=== PATIENT | female | born 1960 | race Caucasian/White ===

== ENCOUNTER 2021-11-28 09:59 | Outpatient (CLI) | payer OTHER, SELFPAY ==
--- NOTE | ~2021-11-28 | US_ITS ---
EXAMINATION: US right upper quadrant DATE: 11/28/2021 10:17 INDICATION: Abdominal pain. Nausea and vomiting. TECHNIQUE: Multiple grayscale and Doppler ultrasound images of the abdomen were obtained. COMPARISON: None FINDINGS: Abdominal aorta is normal in caliber. The visualized portions of the head and body of the p ancreas are normal. There is diffuse hepatic steatosis. No liver surface nodularity. There is a 1.7 c m cyst in the liver. There is normal flow in main portal vein. The gallbladder is normal in size. No gallstones or gallbladder wall thickening. There was no sonographic Banks sign. The common duct is n ormal and measures 5 mm. IMPRESSION: 1. Diffuse hepatic steatosis. Reviewed, dictated and finalized at location B.
== END 2021-11-28 10:00 ==
PROVIDERS: PCP Internal Medicine; Visit Provider Internal Medicine
DX: R10.9 Unspecified abdominal pain (principal); K76.0 Fatty (change of) liver, not elsewhere classified
CPT/HCPCS: 76705

== ENCOUNTER 2022-04-21 00:32 | Day surgery (SDC) | payer OTHER, SELFPAY ==
[2022-04-11 10:16] VITALS: BMI 29.0
--- NOTE | 2022-04-20 15:43 | PM.HPGS ---
History of Present Illness History of Present Illness Consent: Risks, benefits, and alternatives have been discussed and questions answered. Patient agrees to proceed with procedure. Chief complaint: hx colon polyps, abdom. distension, weightloss Narrative: Cece Levi is a 61 year old female Who was being investigated for abdominal pain nausea and heartburn. She states that in December she began having epigastric pain which will radiate to the center of her abdomen. She also has nausea bloating. Most of this occurs an hour to after eating particularly if it is spicy food. Symptoms last from minutes to hours. Pepcid will help to some extent with nausea. She has lost about 15 lb during this period of time. she does take meloxicam 15 mg but not daily, and also is chronically on Nexium. Review of Systems Review of Systems: All systems reviewed & are unremarkable except as noted in HPI and below PMFSH Past Medical History Medical History Abdominal pain Abnormality of heart beat Alternating constipation and diarrhea Arthritis Bleeding nose Bloating Cardiomegaly Cavus deformity of left foot Congestion of nasal sinus Constipation COPD (chronic obstructive pulmonary disease) Coughing Dizziness Excessive bleeding GERD (gastroesophageal reflux disease) Hearing loss History of adverse reaction to anesthesia History of intraoperative complication of surgical procedure IBS (irritable bowel syndrome) Light headedness Metatarsus adductus of both feet SOB (shortness of breath) Wears glasses Weight loss Wheezing Surgical History Surgical History History of ear surgery History of nasal surgery History of throat surgery History of tonsillectomy and adenoidectomy Family History Family History Other Arthritis Asthma Cerebrovascular accident Diabetes mellitus Heart disease Hypertension Kidney disorder Lung disease Social History Social History Smoking status: Never smoker Alcohol intake: current Alcohol use details: 2 per month Substance use: never Substance use type: does not use Living arrangements: with family Gender identity (if verbalized by the patient): Female Spiritual care concerns: No Meds Home Medications and Allergies Home Medications Medication Instructions Recorded Confirmed Type acetaminophen 325 mg capsule 325 mg PO Q6H PRN Pain 02/04/21 04/11/22 History (Tylenol) cetirizine 10 mg capsule (Zyrtec) 10 mg PO DAILY PRN Allergy Symptoms 02/04/21 04/11/22 History cholecalciferol (vitamin D3) 50 50 mcg PO DAILY 02/04/21 04/11/22 History mcg (2,000 unit) capsule garlic 1,000 mg capsule 2,000 mg PO DAILY 02/04/21 04/11/22 History guaifenesin [Mucinex] 1 tab-cap PO DAILY 02/04/21 04/11/22 History meloxicam 15 mg tablet 15 mg PO DAILY 02/04/21 04/11/22 History vitamin B complex [B 1 tab-cap PO DAILY 02/04/21 04/11/22 History Complex-Vitamin B12] zinc acetate 1 tab-cap PO DAILY 02/04/21 04/11/22 History esomeprazole magnesium 40 mg 40 mg PO DAILY 1 month #30 caps 03/22/22 04/11/22 Rx capsule,delayed release (Nexium) magnesium oxide 500 mg tablet 500 mg PO DAILY 03/22/22 04/11/22 History turmeric root extract 500 mg 500 mg PO DAILY 03/22/22 04/11/22 History capsule montelukast 10 mg tablet 10 mg PO DAILY 04/11/22 04/11/22 History Allergies Allergy/AdvReac Type Severity Reaction Status Date / Time codeine Allergy Unknown nausea and Verified 04/21/22 12:20 vomiting Sulfa (Sulfonamide Allergy Unknown rash Verified 04/21/22 12:20 Antibiotics) Exam Const: General: alert Orientation/consciousness: patient oriented x3 Resp: Auscultation: clear to auscultation bilaterally Cardio: Rhythm: regular rhythm GI: GI Palp: Yes Soft to pal
[2022-04-21 12:22] VITALS: BP 110/65; PULSE 60; RESP 18; TEMP 36.2; O2SAT 100
[2022-04-21] MEDS: LACTATED RINGERS 1,000 ML 150 ML IV CONT (12:34)
--- NOTE | 2022-04-21 12:52 | WPDANESEPPF ---
Anes - Initial Pre Proc Eval Procedure: Operation Date: 04/21/22 13:30 Proposed Procedures p Esophagogastroduodenoscopy & Colonoscopy - Choco Harper MD Date/Time: 04/21/22 12:52 Surgeon: Choco Harper MD Pre Op Diagnosis: hx colon polyps, abdom. distension, weightloss Patient Data Age: 61 Gender: F Height: 1.65 m Weight: 74.7 kg Last Vital Signs Temp 97.2 F L 04/21/22 12:22 Pulse 60 04/21/22 12:22 Resp 18 04/21/22 12:22 BP 110/65 04/21/22 12:22 Pulse Ox 100 04/21/22 12:22 O2 Del Method Room Air 04/21/22 12:22 Allergies Allergy/AdvReac Type Severity Reaction Status Date / Time codeine Allergy Unknown nausea and Verified 04/21/22 12:20 vomiting Sulfa (Sulfonamide Allergy Unknown rash Verified 04/21/22 12:20 Antibiotics) Home Medications Medication Instructions Recorded Confirmed Type acetaminophen 325 mg capsule 325 mg PO Q6H PRN Pain 02/04/21 04/11/22 History (Tylenol) cetirizine 10 mg capsule (Zyrtec) 10 mg PO DAILY PRN Allergy Symptoms 02/04/21 04/11/22 History cholecalciferol (vitamin D3) 50 50 mcg PO DAILY 02/04/21 04/11/22 History mcg (2,000 unit) capsule garlic 1,000 mg capsule 2,000 mg PO DAILY 02/04/21 04/11/22 History guaifenesin [Mucinex] 1 tab-cap PO DAILY 02/04/21 04/11/22 History meloxicam 15 mg tablet 15 mg PO DAILY 02/04/21 04/11/22 History vitamin B complex [B 1 tab-cap PO DAILY 02/04/21 04/11/22 History Complex-Vitamin B12] zinc acetate 1 tab-cap PO DAILY 02/04/21 04/11/22 History esomeprazole magnesium 40 mg 40 mg PO DAILY 1 month #30 caps 03/22/22 04/11/22 Rx capsule,delayed release (Nexium) magnesium oxide 500 mg tablet 500 mg PO DAILY 03/22/22 04/11/22 History turmeric root extract 500 mg 500 mg PO DAILY 03/22/22 04/11/22 History capsule montelukast 10 mg tablet 10 mg PO DAILY 04/11/22 04/11/22 History Patient hx anesthesia problems: none Family hx anesthesia problems: none Results Review: All pre-operative results and documents have been reviewed as part of the pre-operative evaluation. [facility] Past Medical History Medical History (Updated 04/21/22 @ 12:27 by Choco Harper MD) Abdominal pain Abnormality of heart beat Alternating constipation and diarrhea Arthritis Bleeding nose Bloating Cardiomegaly Cavus deformity of left foot Congestion of nasal sinus Constipation COPD (chronic obstructive pulmonary disease) Coughing Dizziness Excessive bleeding GERD (gastroesophageal reflux disease) Hearing loss History of adverse reaction to anesthesia History of intraoperative complication of surgical procedure IBS (irritable bowel syndrome) Light headedness Metatarsus adductus of both feet SOB (shortness of breath) Wears glasses Weight loss Wheezing Surgical History Surgical History History of ear surgery History of nasal surgery History of throat surgery History of tonsillectomy and adenoidectomy Family History Family History Other Arthritis Asthma Cerebrovascular accident Diabetes mellitus Heart disease Hypertension Kidney disorder Lung disease Social History Social History Smoking status: Never smoker Alcohol intake: current Alcohol use details: 2 per month Substance use: never Substance use type: does not use Living arrangements: with family Gender identity (if verbalized by the patient): Female Spiritual care concerns: No Anes - Eval Final PreProcedure Day of Procedure 04/21/22 12:52 Patient weight: normal Heart: regular rate and rhythm Lungs: clear to auscultation Airway: Mallampati scale class II Neurological: alert and oriented Last oral intake: >/= 8 hours ASA classification: III Emergent: no Anesthetic plan: proceed Anesthesia type and monitoring: general GIVS and standard monitoring Results Revi
--- NOTE | 2022-04-21 13:40 | SUR.OPER ---
EGD START: 1314; END: 1319. COLONOSCOPY START: 1326; END: 1339.
[2022-04-21 13:42] VITALS: BP 95/58; PULSE 54; RESP 14; O2SAT 100
[2022-04-21 13:52] VITALS: BP 94/56; PULSE 58; RESP 17; O2SAT 99
[2022-04-21 14:02] VITALS: BP 104/60; PULSE 48; RESP 18; O2SAT 100
== END 2022-04-21 14:28 | disposition home or self-care (01) ==
PROVIDERS: PCP Physician Assistant Medical; Visit Provider Internal Medicine Gastroenterology
PROC: 0DJ08ZZ Inspection of Upper Intestinal Tract, Via Natural or Artificial Opening Endoscopic (ICD-10-PCS; CPT 43235; principal; 2022-04-21 13:30)
DX: Z12.11 Encounter for screening for malignant neoplasm of colon (principal); Z86.010 Personal history of colon polyps; K57.30 Diverticulosis of large intestine without perforation or abscess without bleeding; R10.13 Epigastric pain; K21.00 Gastro-esophageal reflux disease with esophagitis, without bleeding; K22.5 Diverticulum of esophagus, acquired; R14.0 Abdominal distension (gaseous); R63.4 Abnormal weight loss; J44.9 Chronic obstructive pulmonary disease, unspecified; K58.9 Irritable bowel syndrome, unspecified; M19.90 Unspecified osteoarthritis, unspecified site; I51.7 Cardiomegaly
CPT/HCPCS: 45378; 43239; 88305; J2704; J7120

== ENCOUNTER 2022-05-18 07:38 | Outpatient (CLI) | payer OTHER, SELFPAY ==
--- NOTE | ~2022-05-18 | NM_ITS ---
EXAM: NM gastric emptying study DATE: 05/18/2022 12:59 CDT INDICATION: Postprandial nausea with bloating TECHNIQUE: A gastric emptying study was performed using the methodology of Ariela TAN, et al. J Nucl Med 2007; 48:568-572. The patient was given a meal consisting of 2 scrambled eggs labeled with 1 mCi Tc-99m sulfur colloid, 2 slices of toast, two packages of jam, and approximately 120 mL of water. Si multaneous anterior and posterior 1-min images of the abdomen were obtained with the patient supine a t multiple time points over a total period of 4 hours. The geometric mean of anterior and posterior v iews was determined, and the percentage retention was calculated for each time point. COMPARISON: Ultrasound dated 11/28/2021. FINDINGS: Gastric retention of the radiotracer-labeled meal was 57%, 34%, and 8% at the 1-hour, 2-ho ur, and 4-hour time points, respectively. With this technique, apparent rapid gastric emptying is sug gested by <30% gastric retention at 1 hour. Delayed gastric emptying is defined by gastric retention of >90% at 1 hour, >60% retention at 2 hours, or >10% retention at 4 hours. IMPRESSION: 1. Normal gastric emptying. Reviewed, dictated and finalized at location A. IMPRESSION: 1. Normal gastric emptying.
== END 2022-05-18 07:39 | disposition home or self-care (01) ==
LOC: ANHIMG 07:42
PROVIDERS: PCP Physician Assistant Medical; Visit Provider Nurse Practitioner Family
DX: R11.0 Nausea (principal); R14.0 Abdominal distension (gaseous)
CPT/HCPCS: 78264; A9541

== ENCOUNTER 2022-11-12 17:19 | Emergency (ER) | payer OTHER, SELFPAY ==
--- NOTE | 2022-11-12 17:27 | ED.GENADULT ---
HPI - General Adult General Chief complaint: Upper Respiratory Infection Stated complaint: sorethroat,cough,rt ear pain Time Seen by Provider: 11/12/22 17:27 Source: patient Mode of arrival: ambulatory Limitations: no limitations History of Present Illness HPI narrative: 7-year-old female patient presents to the [facility] with complaints of cold symptoms for the past 2 days. Patient states she has had cough, congestion, runny nose, watery eyes and a scratchy sore throat. Denies fevers, body aches or chills. Denies chest pain or shortness of breath. Patient states she has been taking [id number]-gaw-likmsov sinus medication for her symptoms including Mucinex. Related Data Home Medications Medication Instructions Recorded Confirmed acetaminophen 325 mg capsule 325 mg PO Q6H PRN Pain 02/04/21 11/12/22 (Tylenol) cetirizine 10 mg capsule (Zyrtec) 10 mg PO DAILY PRN Allergy Symptoms 02/04/21 11/12/22 cholecalciferol (vitamin D3) 50 50 mcg PO DAILY 02/04/21 11/12/22 mcg (2,000 unit) capsule guaifenesin [Mucinex] 1 tab-cap PO DAILY 02/04/21 11/12/22 vitamin B complex [B 1 tab-cap PO DAILY 02/04/21 11/12/22 Complex-Vitamin B12] zinc acetate 1 tab-cap PO DAILY 02/04/21 11/12/22 turmeric root extract 500 mg 500 mg PO DAILY 03/22/22 11/12/22 capsule Lactobacills gasseri-Bifidobac 1 cap PO DAILY 10/20/22 11/12/22 bifidum,longum 1.5 billion cell capsule (BuildFax) magnesium citrate 4 gram oral 400 mg PO DAILY 10/20/22 11/12/22 packet omega 8-plq-qmc-fish oil 300 1 cap PO DAILY 10/20/22 11/12/22 mg-1,000 mg capsule (Fish Oil) Allergies Allergy/AdvReac Type Severity Reaction Status Date / Time codeine Allergy Unknown nausea and Verified 11/12/22 17:37 vomiting Sulfa (Sulfonamide Allergy Unknown rash Verified 11/12/22 17:37 Antibiotics) Review of Systems Review of Systems: CONSTITUTIONAL: Denies fever, chills, or sweats. EYES: Denies visual changes, redness, or discharge. ENT: Positiverhinorrhea, congestion, sore throat, and bilateral otalgia. CARDIOVASCULAR: Denies chest pain, palpitations, or edema. RESPIRATORY: positive nonproductive cough , denies dyspnea. GASTROINTESTINAL: Denies abdominal pain, nausea, vomiting, or diarrhea. GENITOURINARY: Denies dysuria or hematuria. SKIN: Denies rash or itching. MUSCULOSKELETAL: Denies back pain, joint pain, or myalgia. NEUROLOGIC: Denies headache, numbness, or weakness. PSYCHIATRIC: Denies anxiety or depression. [facility] Past Medical History Medical History Abdominal pain Abnormality of heart beat Allergies Alternating constipation and diarrhea Anxiety Arthritis Bleeding nose Bloating Cardiomegaly Cavus deformity of left foot Congestion of nasal sinus Constipation COPD (chronic obstructive pulmonary disease) Coughing Crohn's disease Dizziness Excessive bleeding GERD (gastroesophageal reflux disease) Hearing loss History of adverse reaction to anesthesia History of intraoperative complication of surgical procedure IBD (inflammatory bowel disease) IBS (irritable bowel syndrome) Light headedness Metatarsus adductus of both feet Migraines Osteoarthritis SOB (shortness of breath) Wears glasses Weight loss Wheezing Surgical History Surgical History History of ear surgery left; 1981, 1983, 1985, 1986 (mastoidectomy) History of nasal surgery (1974) broken nose History of nasal surgery (1977) History of throat surgery History of tonsillectomy and adenoidectomy (1965) Family History Family History Father Asthma Carcinoma of colon Lung cancer Diabetes mellitus Bipolar disorder Mother Diabetes mellitus Depression Hypertension Heart disease Cerebrovascular accident Rheumatoid arthritis Sibling Asthma Diabetes mellitus Hypertension Depression H
[2022-11-12 17:40] VITALS: BP 117/63; PULSE 71; RESP 12; TEMP 36.8; O2SAT 100
== END 2022-11-12 18:01 | disposition home or self-care (01) ==
PROVIDERS: Emergency Provider Nurse Practitioner Family; PCP Physician Assistant Medical
DX: J01.90 Acute sinusitis, unspecified (principal); Z20.822 Contact with and (suspected) exposure to COVID-19; J44.9 Chronic obstructive pulmonary disease, unspecified; K21.9 Gastro-esophageal reflux disease without esophagitis; M19.90 Unspecified osteoarthritis, unspecified site
CPT/HCPCS: 87081; 87426; 87804; 87880; 99213; C9803; G0463

== ENCOUNTER 2023-03-14 19:03 | Emergency (ER) | payer OTHER, SELFPAY ==
[2023-03-14 19:05] VITALS: BP 106/57; PULSE 73; RESP 16; TEMP 36.6; O2SAT 97
[2023-03-14 19:07] VITALS: BP 106/57; PULSE 73; RESP 16; TEMP 36.6; O2SAT 97
--- NOTE | 2023-03-14 19:08 | ED.SKABFB ---
HPI - Skin/Abscess/Foreign Bdy General Chief complaint: Skin/Abscess/Foreign Body Stated complaint: Unknown Time Seen by Provider: 03/14/23 19:08 Source: patient and RN notes reviewed History of Present Illness HPI narrative: 62-year-old female presents to urgent care with complaints of a presumed insect bite to her right posterior thigh. Patient states she went to the [facility] on Sunday night where she felt something possibly bite her right leg. Pt reports tenderness to the area. Denies any fevers, chills, vomiting, diarrhea, chest pain, SOB, or drainage from the area. Pt states she has attempted Epsom salt baths with minimal relief. Related Data Home Medications Medication Instructions Recorded Confirmed cetirizine 10 mg capsule (Zyrtec) 10 mg PO DAILY PRN Allergy Symptoms 02/04/21 03/14/23 cholecalciferol (vitamin D3) 50 50 mcg PO DAILY 02/04/21 03/14/23 mcg (2,000 unit) capsule guaifenesin [Mucinex] 1 tab-cap PO DAILY 02/04/21 03/14/23 vitamin B complex [B 1 tab-cap PO DAILY 02/04/21 03/14/23 Complex-Vitamin B12] zinc acetate 1 tab-cap PO DAILY 02/04/21 03/14/23 turmeric root extract 500 mg 500 mg PO DAILY 03/22/22 03/14/23 capsule Lactobacills gasseri-Bifidobac 1 cap PO DAILY 10/20/22 03/14/23 bifidum,longum 1.5 billion cell capsule (Glimpse) omega 9-qov-vxk-fish oil 300 1 cap PO DAILY 10/20/22 03/14/23 mg-1,000 mg capsule (Fish Oil) Allergies Allergy/AdvReac Type Severity Reaction Status Date / Time codeine AdvReac Intermediate nausea and Verified 03/14/23 19:05 vomiting Sulfa (Sulfonamide AdvReac Mild rash Verified 03/14/23 19:05 Antibiotics) Review of Systems Review of Systems: CONSTITUTIONAL: Denies fever, chills, or sweats. EYES: Denies visual changes, redness, or discharge. ENT: Denies otalgia and sore throat CARDIOVASCULAR: Denies chest pain, palpitations, or edema. RESPIRATORY: Denies cough or dyspnea. GASTROINTESTINAL: Denies abdominal pain, nausea, vomiting, or diarrhea. GENITOURINARY: Denies dysuria or hematuria. SKIN: insect bite to right posterior thigh MUSCULOSKELETAL: Denies back pain, joint pain, or myalgia. NEUROLOGIC: Denies headache, numbness, or weakness. Pertinent positives per HPI. [facility] Past Medical History Medical History Abdominal pain Abnormality of heart beat Allergies Alternating constipation and diarrhea Anxiety Arthritis Bleeding nose Bloating Cardiomegaly Cavus deformity of left foot Congestion of nasal sinus Constipation COPD (chronic obstructive pulmonary disease) Coughing Crohn's disease Dizziness Excessive bleeding GERD (gastroesophageal reflux disease) Hearing loss History of adverse reaction to anesthesia History of intraoperative complication of surgical procedure IBD (inflammatory bowel disease) IBS (irritable bowel syndrome) Light headedness Metatarsus adductus of both feet Migraines Osteoarthritis SOB (shortness of breath) Wears glasses Weight loss Wheezing Surgical History Surgical History History of ear surgery left; 1981, 1983, 1985, 1986 (mastoidectomy) History of nasal surgery (1974) broken nose History of nasal surgery (1977) History of throat surgery History of tonsillectomy and adenoidectomy (1965) Family History Family History Father Asthma Carcinoma of colon Lung cancer Diabetes mellitus Bipolar disorder Mother Diabetes mellitus Depression Hypertension Heart disease Cerebrovascular accident Rheumatoid arthritis Sibling Asthma Diabetes mellitus Hypertension Depression Heart disease Other Asthma Grandparent Heart disease Hypertension Cerebrovascular accident Thyroid disorder Grandparent Stomach cancer Depression Diabetes mellitus Cerebrovascular accident Other Arthrit
== END 2023-03-14 19:11 | disposition home or self-care (01) ==
LOC: EXPTROY 19:11
PROVIDERS: Emergency Provider Nurse Practitioner Family; PCP Physician Assistant Medical
DX: L03.115 Cellulitis of right lower limb (principal); M19.90 Unspecified osteoarthritis, unspecified site; I51.7 Cardiomegaly; J44.9 Chronic obstructive pulmonary disease, unspecified; K50.90 Crohn's disease, unspecified, without complications; K21.9 Gastro-esophageal reflux disease without esophagitis
CPT/HCPCS: 99213; G0463

== ENCOUNTER 2023-12-13 18:19 | Emergency (ER) | payer OTHER, SELFPAY ==
--- NOTE | ~2023-12-13 | XR_ITS ---
EXAMINATION: XR hip RT 2V w AP pelvis DATE: 12/13/2023 18:54 INDICATION: Right hip pain. Fall. TECHNIQUE: An anteroposterior view of the pelvis on two radiographs and 2 views of right hip were obt ained. COMPARISON: None. FINDINGS: There is lumbar levocurvature and mild spondylosis. No fracture. There is moderate right hi p osteoarthritis and mild left hip osteoarthritis. Osteitis pubis is noted. IMPRESSION: 1. Moderate right hip osteoarthritis and mild left hip osteoarthritis. Reviewed, dictated and finalized at location E.
[2023-12-13 18:32] VITALS: BP 105/64; PULSE 55; RESP 18; TEMP 36.4; O2SAT 98
--- NOTE | 2023-12-13 18:46 | ED.FALL ---
HPI - Fall General Chief Complaint: Back Pain/Injury Stated Complaint: Fall Sunday morning Time Seen by Provider: 12/13/23 18:39 Source: patient and RN notes reviewed Mode of arrival: ambulatory Limitations: no limitations History of Present Illness HPI Narrative: Patient presents today complaining of right low back and right hip pain after a fall in her home on to some tile floor in her kitchen 2 days ago. Denies numbness tingling in legs, feet, genitalia. Denies loss of bowel or bladder control. Currently rates her pain at rest 8/10, which increases with weight-bearing. She has been taking Tylenol with mild relief. Denies head injury or loss of consciousness. She does not take a blood thinner or aspirin. Related Data Allergies Allergy/AdvReac Type Severity Reaction Status Date / Time codeine AdvReac Intermediate nausea and Verified 12/13/23 18:52 vomiting Sulfa (Sulfonamide AdvReac Mild rash Verified 12/13/23 18:52 Antibiotics) Review of Systems Review of Systems: CONSTITUTIONAL: Denies body aches, fever, chills, or sweats. EYES: Denies visual changes, redness, or discharge. ENT: Denies rhinorrhea, congestion, sore throat, or otalgia. CARDIOVASCULAR: Denies chest pain, palpitations, or edema. RESPIRATORY: Denies cough or dyspnea. GASTROINTESTINAL: Denies abdominal pain, nausea, vomiting, or diarrhea. GENITOURINARY: Denies dysuria or hematuria. SKIN: Denies rash, itching, or wounds. MUSCULOSKELETAL: + right low back pain, right hip pain NEUROLOGIC: Denies headache, numbness, tingling, or weakness. PSYCH: Denies depression or anxiety. [facility] Past Medical History Medical History Abdominal pain Abnormality of heart beat Allergies Alternating constipation and diarrhea Anxiety Arthritis Bleeding nose Bloating Cardiomegaly Cavus deformity of left foot Colitis Congestion of nasal sinus Constipation COPD (chronic obstructive pulmonary disease) Coughing Dizziness Excessive bleeding GERD (gastroesophageal reflux disease) Hearing loss History of adverse reaction to anesthesia History of intraoperative complication of surgical procedure IBD (inflammatory bowel disease) IBS (irritable bowel syndrome) Light headedness Metatarsus adductus of both feet Migraines Osteoarthritis SOB (shortness of breath) Wears glasses Weight loss Wheezing Surgical History Surgical History History of ear surgery left; 1981, 1983, 1985, 1986 (mastoidectomy) History of nasal surgery (1974) broken nose History of nasal surgery (1977) History of throat surgery History of tonsillectomy and adenoidectomy (1965) Family History Family History Father Asthma Carcinoma of colon Lung cancer Diabetes mellitus Bipolar disorder Mother Diabetes mellitus Depression Hypertension Heart disease Cerebrovascular accident Rheumatoid arthritis Sibling Asthma Diabetes mellitus Hypertension Depression Heart disease Other Asthma Grandparent Heart disease Hypertension Cerebrovascular accident Thyroid disorder Grandparent Stomach cancer Depression Diabetes mellitus Cerebrovascular accident Other Arthritis Kidney disorder Lung disease Social History Social History Smoking status: Never smoker Alcohol intake: current Alcohol use details: 3 per year; wine Substance use: never Substance use type: does not use Living arrangements: with family Occupation/Education: occupation 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
== END 2023-12-13 19:10 | disposition home or self-care (01) ==
PROVIDERS: Emergency Provider Nurse Practitioner; PCP Physician Assistant Medical
DX: S39.012A Strain of muscle, fascia and tendon of lower back, initial encounter (principal); S70.01XA Contusion of right hip, initial encounter; W19.XXXA Unspecified fall, initial encounter; J44.9 Chronic obstructive pulmonary disease, unspecified; K21.9 Gastro-esophageal reflux disease without esophagitis; M19.90 Unspecified osteoarthritis, unspecified site
CPT/HCPCS: 73502; 99213; G0463

== ENCOUNTER 2024-02-06 17:56 | Emergency (ER) | payer OTHER, SELFPAY ==
--- NOTE | 2024-02-06 18:02 | ED.SKABFB ---
HPI - Skin/Abscess/Foreign Bdy General Chief complaint: Skin/Abscess/Foreign Body Stated complaint: Bite Right Ankle Time Seen by Provider: 02/06/24 18:02 Source: patient Mode of arrival: ambulatory Limitations: no limitations History of Present Illness HPI narrative: 63-year-old female presents with complaint of to insect bites to right ankle bladder not healing. Patient states that she went to [facility] January 22 and was bit by several mosquitos. Applying [id number] triple antibiotic ointment with no relief. erythematous and tender. Afebrile. All systems reviewed and negative except as noted above. Related Data Allergies Allergy/AdvReac Type Severity Reaction Status Date / Time codeine AdvReac Intermediate nausea and Verified 02/06/24 18:06 vomiting Sulfa (Sulfonamide AdvReac Mild rash Verified 02/06/24 18:06 Antibiotics) Review of Systems Review of Systems: CONSTITUTIONAL: Denies fever, chills, or sweats. EYES: Denies visual changes, redness, or discharge. ENT: Denies rhinorrhea, congestion, sore throat, or otalgia. CARDIOVASCULAR: Denies chest pain, palpitations, or edema. RESPIRATORY: Denies cough or dyspnea. GASTROINTESTINAL: Denies abdominal pain, nausea, vomiting, or diarrhea. GENITOURINARY: Denies dysuria or hematuria. SKIN: Denies rash or itching. Reports infected insect bites to right ankle. MUSCULOSKELETAL: Denies back pain, joint pain, or myalgia. NEUROLOGIC: Denies headache, numbness, or weakness. PSYCHIATRIC: Denies anxiety or depression. All other systems reviewed are negative, except as documented in HPI. [facility] Past Medical History Medical History Abdominal pain Abnormality of heart beat Allergies Alternating constipation and diarrhea Anxiety Arthritis Bleeding nose Bloating Cardiomegaly Cavus deformity of left foot Colitis Congestion of nasal sinus Constipation COPD (chronic obstructive pulmonary disease) Coughing Dizziness Excessive bleeding GERD (gastroesophageal reflux disease) Hearing loss History of adverse reaction to anesthesia History of intraoperative complication of surgical procedure IBD (inflammatory bowel disease) IBS (irritable bowel syndrome) Light headedness Metatarsus adductus of both feet Migraines Osteoarthritis SOB (shortness of breath) Wears glasses Weight loss Wheezing Surgical History Surgical History History of ear surgery left; 1981, 1983, 1985, 1986 (mastoidectomy) History of nasal surgery (1974) broken nose History of nasal surgery (1977) History of throat surgery History of tonsillectomy and adenoidectomy (1965) Family History Family History Father Asthma Carcinoma of colon Lung cancer Diabetes mellitus Bipolar disorder Mother Diabetes mellitus Depression Hypertension Heart disease Cerebrovascular accident Rheumatoid arthritis Sibling Asthma Diabetes mellitus Hypertension Depression Heart disease Other Asthma Grandparent Heart disease Hypertension Cerebrovascular accident Thyroid disorder Grandparent Stomach cancer Depression Diabetes mellitus Cerebrovascular accident Other Arthritis Kidney disorder Lung disease Social History Social History Smoking status: Never smoker Alcohol intake: current Alcohol use details: 3 per year; wine Substance use: never Substance use type: does not use Living arrangements: with family Occupation/Education: occupation 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
[2024-02-06 18:06] VITALS: BP 106/67; PULSE 67; RESP 18; TEMP 36.8; O2SAT 97
== END 2024-02-06 18:19 | disposition home or self-care (01) ==
PROVIDERS: Emergency Provider Nurse Practitioner Family; PCP Physician Assistant Medical
DX: S90.561A Insect bite (nonvenomous), right ankle, initial encounter (principal); L08.9 Local infection of the skin and subcutaneous tissue, unspecified; W57.XXXA Bitten or stung by nonvenomous insect and other nonvenomous arthropods, initial encounter; M19.90 Unspecified osteoarthritis, unspecified site; I51.7 Cardiomegaly; J44.9 Chronic obstructive pulmonary disease, unspecified; K21.9 Gastro-esophageal reflux disease without esophagitis
CPT/HCPCS: 99213; G0463

== ENCOUNTER 2024-03-09 19:37 | Emergency (ER) | payer OTHER, SELFPAY ==
[2024-03-09 19:54] VITALS: BP 106/51; PULSE 57; RESP 18; TEMP 36.6; O2SAT 100
--- NOTE | 2024-03-09 19:54 | ED.GENADULT ---
HPI - General Adult General Chief complaint: Skin/Abscess/Foreign Body Stated complaint: sore on lip/chin Time Seen by Provider: 03/09/24 19:55 Source: patient Mode of arrival: ambulatory Limitations: no limitations History of Present Illness HPI narrative: 63-year-old female patient presents to the [facility] with complaints of a wound to the left side of the lip for the past 3-4 days. Patient states she thought was a pimple but states is gotten significantly worse and it is painful. Denies fevers, body aches or chills. Related Data Home Medications Medication Instructions Recorded Confirmed montelukast 10 mg tablet 10 mg PO HS 03/09/24 03/09/24 Allergies Allergy/AdvReac Type Severity Reaction Status Date / Time codeine AdvReac Intermediate nausea and Verified 03/09/24 19:39 vomiting Sulfa (Sulfonamide AdvReac Mild rash Verified 03/09/24 19:39 Antibiotics) Review of Systems Review of Systems: CONSTITUTIONAL: Denies fever, chills, or sweats. EYES: Denies visual changes, redness, or discharge. ENT: Denies rhinorrhea, congestion, sore throat, or otalgia. CARDIOVASCULAR: Denies chest pain, palpitations, or edema. RESPIRATORY: Denies cough or dyspnea. GASTROINTESTINAL: Denies abdominal pain, nausea, vomiting, or diarrhea. GENITOURINARY: Denies dysuria or hematuria. SKIN: Denies rash or itching. positive wound to left side of the lip x3 days MUSCULOSKELETAL: Denies back pain, joint pain, or myalgia. NEUROLOGIC: Denies headache, numbness, or weakness. PSYCHIATRIC: Denies anxiety or depression. [facility] Past Medical History Medical History Abdominal pain Abnormality of heart beat Allergies Alternating constipation and diarrhea Anxiety Arthritis Bleeding nose Bloating Cardiomegaly Cavus deformity of left foot Colitis Congestion of nasal sinus Constipation COPD (chronic obstructive pulmonary disease) Coughing Dizziness Excessive bleeding GERD (gastroesophageal reflux disease) Hearing loss History of adverse reaction to anesthesia History of intraoperative complication of surgical procedure IBD (inflammatory bowel disease) IBS (irritable bowel syndrome) Light headedness Metatarsus adductus of both feet Migraines Osteoarthritis SOB (shortness of breath) Wears glasses Weight loss Wheezing Surgical History Surgical History History of ear surgery left; 1981, 1983, 1985, 1986 (mastoidectomy) History of nasal surgery (1974) broken nose History of nasal surgery (1977) History of throat surgery History of tonsillectomy and adenoidectomy (1965) Family History Family History Father Asthma Carcinoma of colon Lung cancer Diabetes mellitus Bipolar disorder Mother Diabetes mellitus Depression Hypertension Heart disease Cerebrovascular accident Rheumatoid arthritis Sibling Asthma Diabetes mellitus Hypertension Depression Heart disease Other Asthma Grandparent Heart disease Hypertension Cerebrovascular accident Thyroid disorder Grandparent Stomach cancer Depression Diabetes mellitus Cerebrovascular accident Other Arthritis Kidney disorder Lung disease Social History Social History Social History: Patient is very confident in filling out medical forms. Patient has not received assistance in the past 12 months. 02/29/2024 Smoking status: Never smoker Alcohol intake: current Alcohol use details: 3 per year; wine Substance use: never Substance use type: does not use Do You Feel Safe in your Home?: Yes Lack of Transportation: No Lack of Food: Never True Current Housing: I Have Housing Concerned About Future Housing: No Difficulty Paying Gas/Electric Bills: No Difficulty Paying for Meds: No Currently Unemployed: N
== END 2024-03-09 20:20 | disposition home or self-care (01) ==
PROVIDERS: Emergency Provider Nurse Practitioner Family; PCP Physician Assistant Medical
DX: K13.0 Diseases of lips (principal); J44.9 Chronic obstructive pulmonary disease, unspecified; K21.9 Gastro-esophageal reflux disease without esophagitis; M19.90 Unspecified osteoarthritis, unspecified site; I51.7 Cardiomegaly
CPT/HCPCS: 10060; 99213; G0463